=== PATIENT | male | born 1970 | race Caucasian/White ===

== ENCOUNTER 2020-12-08 00:03 | Emergency (ER) | payer BC, SELFPAY ==
--- NOTE | 2020-12-08 00:12 | ED.EYEPROB ---
HPI - Eye Problem General Chief complaint: Eye Problems Stated complaint: Eye Problem Time Seen by Provider: 12/08/20 00:10 Source: patient Mode of arrival: ambulatory Limitations: no limitations History of Present Illness chief complaint: eye pain and eye redness Onset (ago): hour(s) Onset description: sudden Duration: constant Location: right eye Eye Symptoms: burning, redness and other (discharge purulent material) Place: home If Pain, Quality: burning Treatments Prior to Arrival: other (lots of rubbing of the eye, and then finally irrigation of the eye was attempted. ) Related Data Home Medications Medication Instructions Recorded Confirmed No Home Medications 12/08/20 12/08/20 Allergies Allergy/AdvReac Type Severity Reaction Status Date / Time No Known Allergies Allergy Mild Unverified 04/24/19 12:09 Review of Systems Constitutional: Constitutional: Reports no additional constitutional complaints Eyes: Eyes: Reports no additional eye complaints ENT: Reports system reviewed and no additional complaints, except as documented Cardiovascular: Cardiovascular: Reports no additional cardiovascular complaints Respiratory: Respiratory: Reports no additional respiratory complaints Gastrointestinal: Gastrointestinal: Reports no additional gastrointestinal complaints Genitourinary: Genitourinary: Reports no additional male genitourinary complaints Musculoskeletal: Musculoskeletal: Reports no additional musculoskeletal complaints Integumentary/Breasts: Skin/Breast: Reports system reviewed and no additional complaints, except as docu Neurologic: Reports system reviewed and no additional complaints, except as documented Psychiatric: Psychiatric: Reports no additional psychiatric complaints Endocrine: Endocrine: Reports no additional endocrine complaints Hematologic/Lymphatic: Hematologic/Lymphatic: Reports no additional hematologic/lymphatic complaints Allergic/Immunologic: Allergic/Immunologic: Reports no additional allergic/immunologic complaints [facility] Past Medical History Medical History Alcohol use disorder, moderate, in sustained remission Cannabis use, unspecified with anxiety disorder (~1998) Opioid use disorder, mild, in sustained remission, in controlled environment (~2014) Other asthma (~1998) Surgical History Surgical History (Updated 12/08/20 @ 01:39 by Philippe Mckeon MD) No significant past surgical history Family History Family History Mother Patient's mother is in good health Father Patient's father is in good health Social History Social History Smoking status: Former smoker Second hand tobacco smoke exposure: No Smoking end date: 06/11/17 Alcohol intake: former Substance use: former Gender identity (if verbalized by the patient): Male Spiritual care concerns: No Exam Const: General: no acute distress and alert Orientation/consciousness: patient oriented x3 HENMT: Head: normal to inspection Ears: external ears normal and TM's normal bilaterally General nose exam: Normal external nose present Face and sinus: normal facial exam Mouth: Yes Normal oral and palatal mucosa present Throat: posterior oropharynx normal Eyes: Other: conjunctiva on right appears quite inflamed. Exam with fluorescein was performed. He appears to have an abrasion above and close to the cornea at about the 11 o'clock position. He also has an abrasion of the sclera at the 7 o'clock position below the cornea. The cornea itself looks good. The anterior and posterior chambers are unremarkable. No foreign material was found in the eye. The sclera itself was quite inflamed, with yellow discharge that I think should be treated as a bacterial conjuntivitis. The other eye, the unaffected eye does not appear abnormal, in the least.
[2020-12-08 00:19] VITALS: BP 121/88; PULSE 58; RESP 18; TEMP 37.1; O2SAT 98
[2020-12-08] MEDS: DACRIOSE EYE IRRIGATION 118 ML BOTTLE EACH EYE (00:32)
[2020-12-08] MEDS: FLUORESCEIN SOD 1 MG/STRIP EACH EYE (00:32)
[2020-12-08] MEDS: TETRACAINE HCL 0.5% OPHTH SOLN 4 ML BTL 1 DROP EACH EYE (00:32)
[2020-12-08] MEDS: levoFLOXacin 500 MG TABLET PO (00:54)
[2020-12-08] MEDS: NEOMYCIN/POLYMYXIN/BACITRACIN OPHTH OINTMENT 3.5 GM TUBE 1 APPLIC RIGHT EYE (00:54)
[2020-12-08 00:55] VITALS: BP 128/71; PULSE 68; RESP 18; O2SAT 99
== END 2020-12-08 01:02 | disposition home or self-care (01) ==
PROVIDERS: Emergency Provider Emergency Medicine
DX: S05.8X1A Other injuries of right eye and orbit, initial encounter (principal); H10.31 Unspecified acute conjunctivitis, right eye
CPT/HCPCS: 99282; 99283; A9270

== ENCOUNTER 2024-01-18 20:37 | Emergency (ER) | payer BC, SELFPAY ==
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
[2024-01-18 20:45] VITALS: BP 134/90; PULSE 107; RESP 20; TEMP 36.8; O2SAT 97
[2024-01-18 22:30] VITALS: BP 135/74; PULSE 100; RESP 18; O2SAT 97
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
[2024-01-19 00:25] VITALS: BP 136/85; PULSE 85; RESP 18; TEMP 36.7; O2SAT 98
== END 2024-01-19 00:25 | disposition home or self-care (01) ==
PROVIDERS: Emergency Provider Emergency Medicine
DX: S52.91XA Unspecified fracture of right forearm, initial encounter for closed fracture (principal); S63.502A Unspecified sprain of left wrist, initial encounter; Z87.891 Personal history of nicotine dependence; Y04.2XXA Assault by strike against or bumped into by another person, initial encounter
CPT/HCPCS: 29125; 73090; 73110; 73130; 99284

== ENCOUNTER 2024-01-25 00:28 | Day surgery (SDC) | payer BC, SELFPAY ==
[2024-01-24 10:10] VITALS: BMI 24.4
--- NOTE | 2024-01-24 10:20 | PC.NURSE ---
Report to the Outpatient Waiting Room, entrance under the green pavilion located off [facility], at time _0630_ on date _[id number]_. Planned Procedure Time: _0830_. Time changes happen often and if your time is changed the preop area will call you the afternoon before. - You and your visitor will be asked to self-screen and do not enter if you have any COVID symptoms. - A mask is optional within the hospital at this time. Patients may have clear liquids (water, carbonated beverages, clear teas, apple juice) until 3 hours prior to surgery with a maximum of 20 ounces. - No food from midnight until time of surgery Take the following medications with a SIP of water the morning of surgery: ____None DO NOT STOP ANY OF YOUR OTHER PRESCRIPTION MEDICATIONS PRIOR TO SURGERY ?EXCEPT THE FOLLOWING Medications to discontinue per physician Stop Ibuprofen and Naproxen till after surgery. Ok to use Acetaminophen/Tylenol as needed for pain. Date to take last dose Please no make-up, nail tajik, hairspray, perfume, deodorant, or body powder the day of surgery. No jewelry (including any body piercings) or valuables the day of surgery, leave them at home. Please take a shower or bath the night before, or the morning of, surgery with an antibacterial soap. Wear comfortable, loose fitting clothing. - Jewelry must be removed prior to entering the operating room. Rings and piercings that are not removed may be cut off. - The hospital will not accept responsibility for valuables. - Please leave all valuables, including medications, at home the day of surgery. If you are going home after surgery, a licensed tour bus driver must drive you home. - NO public transportation without another adult if you receive anesthesia. - We recommend that an adult stay with you for 24 hours following discharge. - We also recommend that you do not drive, make important decision, drink alcoholic beverages, or take any drugs that were not prescribed by your health care provider for at least 24 hours after your discharge time. Follow any additional instructions given to you from your surgeon. If you or anyone in your household have experienced Covid symptoms in the past week, please notify your surgeon or the nurse liaison at the phone number below for possible testing. Telephone instructions given to __Doran__and asked if any additional questions and then verbalized understanding. Patient advised to call surgeon office or pre surgery nurse liaison [phone] if any additional questions.
[2024-01-25] VITALS (8 sets, daily range): BP systolic 124–140; BP diastolic 66–100; PULSE 62–90; RESP 13–25; TEMP 35.8–37.1; O2SAT 92–100
--- NOTE | ~2024-01-25 | XR_ITS ---
EXAMINATION: XR surgery orthopedic DATE: 01/25/2024 12:48 INDICATION: Distal right radius fracture. TECHNIQUE: 4 intraoperative spot fluoroscopic views of the right wrist were obtained. I was not prese nt. Fluoroscopy exposure time was 15 seconds. COMPARISON: Right wrist radiographs 01/22/2024 FINDINGS: There is a comminuted fracture of distal radius. The main distal fracture fragment demonstr ates near-anatomic alignment status post open reduction internal fixation with volar plate and screws . IMPRESSION: 1. Comminuted fracture of distal radius status post open reduction internal fixation. Reviewed, dictated and finalized at location A. IMPRESSION: 1. Comminuted fracture of distal radius status post open reduction internal fix ation.
[2024-01-25] MEDS: LACTATED RINGERS 1,000 ML 30 ML IV CONT ×2 (06:50→09:10)
[2024-01-25] MEDS: ACETAMINOPHEN 500 MG TABLET 1000 MG PO (06:50)
[2024-01-25] MEDS: KETOROLAC 15 MG/ML VIAL (*BKC) IV PUSH (06:50)
--- NOTE | 2024-01-25 06:57 | P.PNAN_ITS ---
Anes - Initial Pre Proc Eval Procedure: Operation Date: 01/25/24 07:30 Proposed Procedures p Open Reduction Internal Fixation Right Wrist Fracture - Jordan Chavarria MD Date/Time: 01/25/24 06:57 Surgeon: Jordan Chavarria MD Pre Op Diagnosis: right wrist fracture Patient Data Age: 53 Gender: M Height: 1.88 m Weight: 86.4 kg Allergies Allergy/AdvReac Type Severity Reaction Status Date / Time No Known Allergies Allergy Mild Verified 01/24/24 10:29 Home Medications Medication Instructions Recorded Confirmed Type naproxen 500 mg tablet (Naprosyn) 500 mg PO BID-TID PRN pain #60 tabs 01/19/24 01/24/24 Rx ibuprofen 200 mg tablet 600 mg PO Q8H 01/24/24 01/24/24 History Patient hx anesthesia problems: none Family hx anesthesia problems: none Results Review: All pre-operative results and documents have been reviewed as part of the pre- operative evaluation. [facility] Past Medical History Medical History Alcohol use disorder, moderate, in sustained remission Cannabis use, unspecified with anxiety disorder (~1998) Fracture of right distal radius Opioid use disorder, mild, in sustained remission, in controlled environment (~2014) Other asthma (~1998) Surgical History Surgical History No significant past surgical history Family History Family History Mother Patient's mother is in good health Father Patient's father is in good health Social History Social History Smoking packs per day: 0.5 Smoking cigarettes per day: 10.0 Years smoked: 10 Smoking pack-years: 5.00 Smoking status: Current every day smoker Tobacco type: cigarettes Second hand tobacco smoke exposure: No Smoking end date: 06/11/17 Alcohol intake: current Substance use: former Substance use type: marijuana Living arrangements: with family Gender identity (if verbalized by the patient): Male Spiritual care concerns: No Anes - Eval Final PreProcedure Day of Procedure 01/25/24 06:57 Patient weight: normal Heart: regular rate and rhythm Lungs: clear to auscultation Airway: Mallampati scale class II Neurological: alert and oriented Last oral intake: >/= 8 hours ASA classification: III Emergent: no Anesthetic plan: proceed Anesthesia type and monitoring: general LMA and standard monitoring Results Review: All pre-operative results and documents have been reviewed as part of the pre- operative evaluation. Informed Consent: The patient's anesthetic plan and its attendant risks and benefits were discussed with the patient/family/POA. Questions were solicited and answers provided to the satisfaction of the patient/family/POA.
--- NOTE | 2024-01-25 07:24 | WPDHPUPDATE1 ---
History and Physical Update Update Date/Time: 01/25/24 07:24 History and Physical has been reviewed, including an updated exam of the patient. There are NO changes in the patient's condition. Risks, benefits, and alternatives have been discussed and questions answered. Patient agrees to proceed with procedure.
--- NOTE | 2024-01-25 07:27 | WPDHPUPDATE1 ---
History and Physical Update Update Date/Time: 01/25/24 07:27 History and Physical has been reviewed, including an updated exam of the patient. There are NO changes in the patient's condition. Risks, benefits, and alternatives have been discussed and questions answered. Patient agrees to proceed with procedure.
[2024-01-25] MEDS: ceFAZolin 2 GM/D5W 50 ML 2 GM/50 ML BAG IVPB (07:34)
[2024-01-25] MEDS: BUPivacaine HCL 0.5% 10 ML AMP 20 ML INFILTRATE (08:10)
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
== END 2024-01-25 10:55 | disposition home or self-care (01) ==
PROVIDERS: PCP Family Medicine; Visit Provider Orthopaedic Surgery
PROC: (CPT 25575; principal; 2024-01-25 07:30)
DX: S52.571A Other intraarticular fracture of lower end of right radius, initial encounter for closed fracture (principal); J45.998 Other asthma; F41.9 Anxiety disorder, unspecified; F12.90 Cannabis use, unspecified, uncomplicated; Z79.1 Long term (current) use of non-steroidal anti-inflammatories (NSAID); Z87.891 Personal history of nicotine dependence
CPT/HCPCS: 25609; 99199; A9270; C1713; J0690; J1100; J1170; J1885; J2250; J2405; J2704; J3010; J7120

== ENCOUNTER 2024-02-18 08:33 | Outpatient (CLI) | payer BC, SELFPAY ==
--- NOTE | ~2024-02-18 | XR_ITS ---
EXAMINATION: XR wrist RT min 3V DATE: 02/18/2024 08:56 INDICATION: Right wrist fracture. TECHNIQUE: 3 views of right wrist were obtained. COMPARISON: Right wrist radiographs 01/28/2024, 01/18/2024 FINDINGS: There is a comminuted fracture of distal radius with involvement of the distal articular garcia rface. The main distal fracture fragment demonstrates impaction and dorsal angulation. There is 13 de grees dorsal tilt of the distal articular surface. Internal fixation is seen with volar plate and scr ews. 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 IMPRESSION: 1. Comminuted fracture of distal radius status post open reduction internal fixation. Reviewed, dictated and finalized at location A. IMPRESSION: 1. Comminuted fracture of distal radius status post open reduction internal fix ation.
== END 2024-02-18 08:34 | disposition home or self-care (01) ==
LOC: CHSIMG 08:36
PROVIDERS: PCP Family Medicine; Visit Provider Orthopaedic Surgery
DX: S52.501A Unspecified fracture of the lower end of right radius, initial encounter for closed fracture (principal)
CPT/HCPCS: 73110

== ENCOUNTER 2024-03-17 08:31 | Outpatient (CLI) | payer BC, SELFPAY ==
--- NOTE | ~2024-03-17 | XR_ITS ---
Right wrist Technique: PA, oblique, lateral, and ulnar deviation views were obtained. Clinical History: Postoperative follow-up COMPARISON: 02/18/2024 Findings: Status post ORIF of healing fracture of the distal radius. Osseous and orthopedic hardware alignment is unchanged. No new fracture or dislocation seen.. Joint spaces are preserved. Soft tissue s are unremarkable. Impression: Stable ORIF changes of the distal radius. Reviewed, dictated and finalized at location M. Impression: Stable ORIF changes of the distal radius.
== END 2024-03-17 08:32 | disposition home or self-care (01) ==
PROVIDERS: PCP Family Medicine; Visit Provider Orthopaedic Surgery
DX: S52.501A Unspecified fracture of the lower end of right radius, initial encounter for closed fracture (principal)
CPT/HCPCS: 73110

== ENCOUNTER 2024-04-07 08:39 | Outpatient (CLI) | payer BC, SELFPAY ==
--- NOTE | ~2024-04-07 | XR_ITS ---
EXAMINATION: XR wrist RT min 3V DATE: 04/07/2024 08:50 INDICATION: Fracture follow-up TECHNIQUE: Posteroanterior, ulnar deviation, oblique, and lateral views of the right wrist were obtai aquilino. COMPARISON: 03/17/2024 FINDINGS: Again seen is a volar T plate and screw fixation of a comminuted intra-articular fracture of the dist al right radius. There is a small amount of callus formation seen dorsally as well as decreasing luce ncy along the fracture planes consistent with some interval healing. The fracture is healing with 12 degree residual dorsal tilt of the distal articular surface. There is no significant fracture gap or incongruity evident at the articular surface. No other fractures identified. There is mild osteoarthr itis at the wrist, distal radioulnar, triscaphe and first metacarpophalangeal joints. IMPRESSION: 1. Internally fixed comminuted intra-articular fracture of the distal right radius which is healing w ith no change in 12 degrees dorsal tilt. Reviewed, dictated and finalized at location A. IMPRESSION: 1. Internally fixed comminuted intra-articular fracture of the distal right rad ius which is healing with no change in 12 degrees dorsal tilt.
== END 2024-04-07 08:40 | disposition home or self-care (01) ==
LOC: CHSIMG 08:40
PROVIDERS: PCP Family Medicine; Visit Provider Orthopaedic Surgery
DX: S52.501A Unspecified fracture of the lower end of right radius, initial encounter for closed fracture (principal); S52.571D Other intraarticular fracture of lower end of right radius, subsequent encounter for closed fracture with routine healing
CPT/HCPCS: 73110

== ENCOUNTER 2024-04-16 12:09 | Outpatient (CLI) | payer BC, SELFPAY ==
--- NOTE | ~2024-04-16 | XR_ITS ---
Clinical Indication: Cough PA and lateral views of the chest: Comparison: 12/15/2011 Findings: Probable calcified right basilar granuloma. The lungs are otherwise clear, without evidence of focal consolidation or pleural effusion. Cardiomediastinal silhouette is within normal limits. B ones and soft tissues are unremarkable. Impression: No acute abnormality. Reviewed, dictated and finalized at location . ING ASSISTANT PROPERTY MANAGER Impression: No acute abnormality.
== END 2024-04-16 12:10 | disposition home or self-care (01) ==
PROVIDERS: PCP Family Medicine; Visit Provider Family Medicine
DX: R05.1 Acute cough (principal)
CPT/HCPCS: 71046

== ENCOUNTER 2025-03-30 20:40 | Emergency (ER) | payer BC, SELFPAY ==
[2025-03-30 20:41] VITALS: BP 145/88; PULSE 100; RESP 22; TEMP 36.4; O2SAT 99
--- OUTSIDE RECORDS SUMMARY | 2025-03-30 20:42 | XMS_ITS | Clinical Summary ---
Author Organization [facility] Address [address] [place] [address] Care Team Providers Care Hand Pleater Name Role Phone Unavailable Primary Care Provider Unavailabl e Source Comments [facility],non-owned Affiliates and Associated Physician Practices is amultiple site organization consisting of ambulatory clinics and hospital sitesin [place], [place]. This disclosure is being madepursuant to the Care Everywhere program and may not contain all information available regarding this patient. 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 Gender Identity Not on file Sexual Orientation Not on file Plan of Treatment Health Maintenance Due Date Last Done Comments COLOGUARD (AGES 45-75) - COL ON CA SCREENING 1972 COLON MONITORING 1972 COLONOSCOPY - COLON CA SCREENING 1972 CT COLONOGRAPHY - COLON CA SCREENING 1972 Colorectal Cancer Screening 1972 FIT - COLON CA SCREENING 1972 FLEX SIG - COLON CA SCREENING 1972 LIPID TESTING 1972 HIV SCREENING 1987 HEPATITIS C SCREENING 04/27/1990 DTAP/TDAP/TD VACCINES (1 - Tdap) 1991 HEPATITIS B VACCINE (1 of 3 - 19+ 3-dose series) 1991 PNEUMOCOCCAL VACCINE 50+ (1 of 1 - PCV) 2022 ZOSTER VACCINE (1 of 2) 2022 DEPRESSION SCREENING 06/11/2024 COVID-19 VACCINE (1 - 2023-2 5 season) 2025 INFLUENZA VACCINE (#1) 2025 HIB VACCINE Aged Out No longer eligi ble based on patient's age to complete this topic HPV VACCINE Aged Out No longer eligi ble based on patient's age to complete this topic MENINGOCOCCAL (Group B) VACC INE SHARED DECISION-MAKING Aged Out No longer eligibl e based on patient's age to complete this topic MENINGOCOCCAL GROUPS A/C/Y/W VACCINE Aged Out No longer eligible b ased on patient's age to complete this topic
--- OUTSIDE RECORDS SUMMARY | 2025-03-30 20:42 | XMS_ITS | Clinical Summary ---
Author Organization [address] Address [address] [place] [address] Care Team Providers Care Photonic Laboratory Technician Name Role Phone Unknown, Notinfile Primary Care Provider Unavail able Allergies No known active allergies Medications clotrimazole (LOTRIMIN) 1 % external solutionIndicati ons:Otomycosis of both ears Apply BID into ear canal x 14 days. 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 Gender Identity Not on file Sexual Orientation Not on file Obstetrics History Last Filed Vital Signs Vital Sign Reading Time Taken Comments Blood Pressure 124/66 11/21/2021 3:59 PM CDT Pulse 69 11/21/2021 3:59 PM CDT Temperature 36.3 C (97.3 F) 11/21/2021 3:59 PM CDT Respiratory Rate 16 11/21/2021 3:59 PM CDT Oxygen Saturation 96% 11/21/2021 3:59 PM CDT Inhaled Oxygen Concentration - - Weight 81.6 kg (180 lb) 11/21/2021 3:59 PM CDT Height 185.4 cm (6' 1) 11/21/2021 3:59 PM CDT Body Mass Index 23.75 11/21/2021 3:59 PM CDT Plan of Treatment Not on file Insurance [facility] Care Teams Photonic Laboratory Technician Relationship Specialty Start Date End Date Unknown, Notinfile PCP - General 11/21/21
--- NOTE | 2025-03-30 20:50 | ED.GENADULT ---
HPI - General Adult General Chief complaint: Urogenital-Male Stated complaint: possible infection Time Seen by Provider: 03/30/25 20:41 History of Present Illness HPI narrative: Anderson presented to clinic with concerns of an STI. He has had mild dysuria and purulent penile discharge for a couple days and has had a new sexual partner. No flank pain, fevers, chills or systemic symptoms. Related Data Allergies Allergy/AdvReac Type Severity Reaction Status Date / Time No Known Allergies Allergy Mild Verified 03/30/25 20:55 Review of Systems Review of Systems: All systems reviewed & are unremarkable except as noted in HPI and below PMFSH Past Medical History Medical History Fracture of right distal radius Alcohol use disorder, moderate, in sustained remission Cannabis use, unspecified with anxiety disorder (~1998) Opioid use disorder, mild, in sustained remission, in controlled environment (~2014) Other asthma (~1998) Surgical History Surgical History No significant past surgical history Family History Family History Mother Patient's mother is in good health Father Patient's father is in good health Social History Social History Smoking packs per day: 0.5 Smoking cigarettes per day: 10.0 Years smoked: 10 Smoking pack-years: 5.00 Smoking status: Current every day smoker Tobacco type: cigarettes Second hand tobacco smoke exposure: No Smoking end date: 06/11/17 Alcohol intake: current Substance use: former Substance use type: marijuana Living arrangements: with family Gender identity (if verbalized by the patient): Male Spiritual care concerns: No Exam Const: General: cooperative, healthy appearing, comfortable, no acute distress, well developed, alert, awake and Physically active Orientation/consciousness: oriented to person, oriented to place and oriented to time HENMT: Head: normal to inspection, normocephalic and atraumatic Ears: hearing grossly normal bilaterally and external ears normal Face/Nose/Sinus: Normal external nose present Eyes: General: appearance normal, both eyes and all related structures Periorbital: periorbital findings normal Sclera: sclerae normal Pupils: Equal, round and reactive pupils present Neck: Neck: normal visual inspection Chest: Chest palpation & inspection: normal inspection of the chest Resp: Effort & Inspection: normal respiratory effort, able to speak in complete sentences and no respiratory distress Cardio: Jugular venous distension: no JVD Skin: General skin exam: normal color and no rashes or lesions noted Neuro: General: oriented to person, oriented to place and oriented to time Cranial nerves: Yes Equal, round and reactive pupils present Extrem: General: normal to inspection Course Course Emergency Course: collected urine sample and sent testing for Gonorrhea, chlamydia and trichomonas. Given ceftriaxone, doxycycline and metronidazole. Vital Signs Vital signs: Vital Signs Temperature 97.6 F 03/30/25 20:41 Pulse Rate 100 03/30/25 20:41 Respiratory Rate 22 H 03/30/25 20:41 Blood Pressure 145/88 H 03/30/25 20:41 Pulse Oximetry 99 03/30/25 20:41 Oxygen Delivery Room Air 03/30/25 20:41 Temperature 97.7 F 03/30/25 22:05 Pulse Rate 84 03/30/25 22:05 Respiratory Rate 16 03/30/25 22:05 Blood Pressure 140/82 03/30/25 22:05 Pulse Oximetry 98 03/30/25 22:05 Oxygen Delivery Room Air 03/30/25 22:05 Medical Decision Making Vital Signs Vital Signs: Vital Signs Temperature 97.6 F 03/30/25 20:41 Pulse Rate 100 03/30/25 20:41 Respiratory Rate 22 H 03/30/25 20:41 Blood Pressure 145/88 H 03/30/25 20:41 Pulse Oximetry 99 03/30/25 20:41 Oxygen Delivery Room Air 03/30/25 20:41 Temperature 97.7 F 03/30/25 22:05 Pulse Rate 84 03/30/25 22:05 Respiratory Rate 16 03/30/25 22:05 Blood Pressure 140/82 03/30/25 22:05 Pulse Oximetry 98 03/30/25 22:05 Oxygen Delivery Room Air 03/30/25 22:05 Lab Data Labs: Lab Results 03/30/25 03/30/25 03/30/25 Range/Units 21:11 21:19 21:22 Urine Color Light yellow (Yellow) Urine Appearance Clear (Clear) Urine pH 6.0 (5.0-8.0) Ur Specific [place] 1.025 H (1.010-1.020) Urine Protein Negative (Negative) Urine Glucose (UA) Negative (Negative) Urine Ketones 1+ H (Negative) Ur Blood (Man) Trace-intact H (Negative) Urine Nitrate Negative (Negative) Urine Bilirubin 1+ H (Negative) Urine Urobilinogen 1.0 (0.2-1.0) mg/dL Leukocyte Esterase Rfl 2+ H (Negative) EMI/UL Urine RBC 3-5 H (0-2) /hpf Urine WBC 21-30 H (0-3) /hpf Ur Squamous Epith Cells None seen (Few) /hpf Urine Bacteria Trace (None) /hpf Urine Trichomonas Present H (None) /hpf C. trachomatis (PCR) Pending N. gonorrhoeae (PCR) Pending T. vaginalis (PCR) T. vaginalis Amp RNA Cancelled 03/30/25 Range/Units 21:26 Urine Color (Yellow) Urine Appearance (Clear) Urine pH (5.0-8.0) Ur Specific [place] (1.010-1.020) Urine Protein (Negative) Urine Glucose (UA) (Negative) Urine Ketones (Negative) Ur Blood (Man) (Negative) Urine Nitrate (Negative) Urine Bilirubin (Negative) Urine Urobilinogen (0.2-1.0) mg/dL Leukocyte Esterase Rfl (Negative) EMI/UL Urine RBC (0-2) /hpf Urine WBC (0-3) /hpf Ur Squamous Epith Cells (Few) /hpf Urine Bacteria (None) /hpf Urine Trichomonas (None) /hpf C. trachomatis (PCR) N. gonorrhoeae (PCR) T. vaginalis (PCR) Pending T. vaginalis Amp RNA Discharge Plan Discharge Clinical Impression: Urethritis Patient Disposition: Home Condition: Stable Instructions: Gonorrhea (ED) Patient Language: [place] Prescriptions: New doxycycline hyclate 100 mg tablet 100 mg PO BID Qty: 14 0RF metronidazole 500 mg tablet 500 mg PO BID Qty: 14 0RF Follow-up/Referrals: Philip Izquierdo MD [Primary Care Provider, Internal Medicine]
[2025-03-30 21:15] LABS: Add Urine Microscopic? YES; Appearance Urine Clear (Clear); Glucose Urine UA Negative (Negative); Leukocyte Esterase Ur 2+ LEU/UL (Negative); Nitrate Urine Negative (Negative); Specific Grav Ur 1.025 (1.010-1.020)
--- NOTE | 2025-03-30 21:20 | PC.NURSE ---
Pyxis indicating Rocephin not available in hospital. Pharmacy notified and will create new order to pull from med station as prescribed doses are available within the Pyxis.
[2025-03-30] MEDS: DOXYCYCLINE HYCLATE 100 MG TABLET PO (21:22)
[2025-03-30] MEDS: LIDOCAINE 1% IM (21:55)
[2025-03-30] MEDS: CEFTRIAXONE 500 MG IM (21:55)
[2025-03-30 22:05] VITALS: BP 140/82; PULSE 84; RESP 16; TEMP 36.5; O2SAT 98
[2025-03-31 07:57] LABS: Trichomonas Vag PCR DETECTED (NOT DETECTE)
--- NOTE | 2025-04-02 19:06 | PC.NURSE ---
FINAL URINE CULTURE NO GROWTH
== END 2025-03-30 22:13 | disposition home or self-care (01) ==
PROVIDERS: Emergency Provider Family Medicine; PCP Family Medicine
DX: N34.2 Other urethritis (principal); F17.210 Nicotine dependence, cigarettes, uncomplicated; Z11.3 Encounter for screening for infections with a predominantly sexual mode of transmission
CPT/HCPCS: 81001; 87086; 87491; 87591; 87661; 96372; 99283; A9270